=== PATIENT | female | born 1985 | race African-American/Black ===

== ENCOUNTER 2016-08-21 02:27 | Emergency (ER) | payer BC ==
[2016-08-21 02:58] VITALS: BP 106/53; PULSE 73; TEMP 97.4; BMI 28.8
[2016-08-21] MEDS ORDERED: METHOCARBAMOL 500 MG TABLET PO ONE (03:30)
[2016-08-21] MEDS ORDERED: KETOROLAC TROMETHAMINE 60 MG/2 ML VIAL IM ONE (03:30)
[2016-08-21] MEDS ORDERED: OXYCODONE/APAP 5/325MG COMBO TABLET ONE (03:31)
[2016-08-21] MEDS ORDERED: METHOCARBAMOL 500 MG TABLET ONE ×2 (03:31→03:33)
[2016-08-21] MEDS ORDERED: OXYCODONE/APAP 5/325MG COMBO TABLET PO ONE (03:31)
[2016-08-21] MEDS ORDERED: KETOROLAC TROMETHAMINE 60 MG/2 ML VIAL ONE (03:32)
--- NOTE | 2016-08-21 03:37 | PDOC ---
History of Present Illness - General History Source: Patient Exam Limitations: No Limitations - History of Present Illness Initial Comments: 08/21/16 04:28 The patient is a 31 year old female with no significant past medical history who presents to the ED with complaints of lower back pain since earlier today. The patient reports she bent over to grab something off the floor, without bending her knees, when she heard something snap in her back at 11 am earlier today. She reports sharp non radiating lower back pain. She states she is unable to walk or stand up secondary to her back pain. Patient reports taking 2 advil at 1 pm and applying a heating pad with no relief of present symptoms. Denies fevers or chills. Denies chest pain or shortness of breath. Denies abdominal pain, nausea, vomiting, or diarrhea. Denies dysuria or changes in urinary output. <Heber Ortiz - Last Filed: 08/21/16 04:28> <Polly Downing - Last Filed: 08/21/16 05:32> - General Chief Complaint: Back Pain Stated Complaint: BACK PAIN Time Seen by Provider: 08/21/16 03:12 Past History <Heber Ortiz - Last Filed: 08/21/16 04:28> - Psycho/Social/Smoking Cessation Hx Suicidal Ideation: No Smoking History: Never smoked Have you smoked in the past 12 months: No Information on smoking cessation initiated: No Hx Alcohol Use: No Drug/Substance Use Hx: No <Polly Downing - Last Filed: 08/21/16 05:32> - Past Medical History Allergies/Adverse Reactions: Allergies Allergy/AdvReac Type Severity Reaction Status Date / Time No Known Allergies Allergy Verified 08/21/16 02:49 Home Medications: Ambulatory Orders NK [No Known Home Medication] 08/21/16 Review of Systems - Review of Systems Able to Perform ROS?: Yes Comments:: 08/21/16 04:28 CONSTITUTIONAL: Absent: fever, chills, diaphoresis, generalized weakness, malaise, loss of appetite HEENT: Absent: rhinorrhea, nasal congestion, throat pain, throat swelling, difficulty swallowing, mouth swelling, ear pain, eye pain, visual Changes CARDIOVASCULAR: Absent: chest pain, syncope, palpitations, irregular heart rate, lightheadedness , peripheral edema RESPIRATORY: Absent: cough, shortness of breath, dyspnea with exertion, orthopnea, wheezing, stridor, hemoptysis GASTROINTESTINAL: Absent: abdominal pain, abdominal distension, nausea, vomiting, diarrhea, constipation, melena, hematochezia GENITOURINARY: Absent: dysuria, frequency, urgency, hesitancy, hematuria, flank pain, genital pain MUSCULOSKELETAL: + back pain Absent: arthralgia, joint swelling SKIN: Absent: rash, itching, pallor HEMATOLOGIC/IMMUNOLOGIC: Absent: easy bleeding, easy bruising, lymphadenopathy, frequent infections ENDOCRINE: Absent: unexplained weight gain, unexplained weight loss, heat intolerance, cold intolerance NEUROLOGIC: Absent: headache, focal weakness or paresthesias, dizziness, unsteady gait, seizure, mental status changes, bladder or bowel incontinence PSYCHIATRIC: Absent: anxiety, depression, suicidal or homicidal ideation, hallucinations. All Other Systems: Reviewed and Negative <Heber Ortiz - Last Filed: 08/21/16 04:28> *Physical Exam - Vital Signs Last Vital Signs Temp Pulse Resp BP Pulse Ox 97.4 F L 73 14 106/53 98 08/21/16 02:49 08/21/16 02:49 08/21/16 02:49 08/21/16 02:49 08/21/16 02:49 - Physical Exam Comments: 08/21/16 04:29 GENERAL: Well developed, well nourished. Awake and alert. No acute distress. HEENT: Normocephalic, atraumatic. PERRLA, EOMI. No conjunctival pallor. Sclera are non- icteric. Moist mucous membranes. Oropharynx is clear. NECK: Supple. Full ROM. No JVD. Carotid pulses 2+ and symmetric, without bruits. No thyromegaly. NCo lymphadenopathy. CARDIOVASCULAR: Regular rate and rhythm. No murmurs, rubs, or gallops. Distal pulses are 2+ and symmetric. PULMONARY: No evidence of respiratory distress. Lungs clear to auscultation bilaterally. No wheezing, rales or rhonchi. ABDOMINAL: Soft. Non-tender. Non-distended. No rebound or guarding. No organomegaly. Normoactive bowel sounds. MUSCULOSKELETAL + paraspinal lumbar pain, no lumbar spine tenderness. Normal range of motion at all joints. No bony deformities or tenderness. No CVA tenderness. EXTREMITIES: No cyanosis. No clubbing. No edema. No calf tenderness. SKIN: Warm and dry. Normal capillary refill. No rashes. No jaundice. NEUROLOGICAL: Alert, awake, appropriate. Cranial nerves 2-12 intact. No deficits to light touch and temperature in face, upper extremities and lower extremities. No motor deficits in the in face, upper extremities and lower extremities. Normoreflexic in the upper and lower extremities. Normal speech. Toes are down- going bilaterally. Gait is normal without ataxia. PSYCHIATRIC: Cooperative. Good eye contact. Appropriate mood and affect. <Heber Ortiz - Last Filed: 08/21/16 04:28> - Vital Signs Last Vital Signs Temp Pulse Resp BP Pulse Ox 97.4 F L 73 14 106/53 98 08/21/16 02:49 08/21/16 02:49 08/21/16 02:49 08/21/16 02:49 08/21/16 02:49 <Polly Downing - Last Filed: 08/21/16 05:32> ED Treatment Course - ADDITIONAL ORDERS Additional order review: Laboratory Results 08/21/16 03:45 Urine HCG, Qual Negative - Medications Given in the ED: ED Medications Discontinued Medications Generic Name Dose Route Start Last Admin Trade Name Freq PRN Reason Stop Dose Admin Ketorolac Tromethamine 60 mg 08/21/16 03:30 08/21/16 03:38 Toradol Injection - IM 08/21/16 03:31 60 mg ONCE ONE Administration Methocarbamol 1,000 mg 08/21/16 03:30 08/21/16 03:38 Robaxin - PO 08/21/16 03:31 1,000 mg ONCE ONE Administration Oxycodone/Acetaminophen 1 combo 08/21/16 03:31 08/21/16 03:38 Percocet 5/325 - PO 08/21/16 03:32 1 combo ONCE ONE Administration <Heber Ortiz - Last Filed: 08/21/16 04:28> Medical Decision Making - Medical Decision Making 08/21/16 05:31 Patient Name: Veronica Anderson THIS IS A PRELIMINARY REPORT FROM [facility] DATE OF SERVICE: 2016-08-21 04:45:24.0 IMAGES: [id number] EXAM: LUMBAR SPINE CT W/O CONTRAST HISTORY:Back pain COMPARISON: None. TECHNIQUE: CT lumbar spine with axial images extending to the lumbar spine and sagittal/coronal reconstructions FINDINGS:The lumbar vertebrae are normal in appearance with no fracture or dislocation. Intervertebral disc spaces appear normal. There is a small left paracentral disc bulge at the level of L4-L5 IMPRESSION: No lumbar spine fracture. Left paracentral disc bulge at L4-L5 THIS DOCUMENT HAS BEEN ELECTRONICALLY SIGNED <Polly Downing - Last Filed: 08/21/16 05:32> *DC/Admit/Observation/Transfer - Attestations Scribe Attestion: 08/21/16 04:29 Documentation prepared by Heber Ortiz, acting as medical cost consultant for Polly Downing MD <Heber Ortiz - Last Filed: 08/21/16 04:28> - Discharge Dispostion Admit: No <Polly Downing - Last Filed: 08/21/16 05:32> Diagnosis at time of Disposition: Bulging of intervertebral disc - Discharge Dispostion Disposition: HOME Condition at time of disposition: Stable - Patient Instructions Printed Discharge Instructions: DI for Herniated Disc - Post Discharge Activity Work/School Note: Back to Work
[2016-08-21] MEDS ORDERED: morphine CARPU-JECT 2 MG/1 ML DISP.SYRIN ONE (04:29)
[2016-08-21] MEDS ORDERED: morphine CARPU-JECT 2 MG/1 ML DISP.SYRIN IVPUSH ONE (05:04)
== END 2016-08-21 05:47 | disposition home or self-care (01) ==
LOC: JER 02:27
PROC: 3E0233Z Introduction of Anti-inflammatory into Muscle, Percutaneous Approach (ICD-10-PCS; principal; 2016-08-21)
PROC: 3E033NZ Introduction of Analgesics, Hypnotics, Sedatives into Peripheral Vein, Percutaneous Approach (ICD-10-PCS; 2016-08-21)
DX: M51.26 Other intervertebral disc displacement, lumbar region (principal)
CPT/HCPCS: 72131-TC; 84703; 99282-25